=== PATIENT | female | born 1960 | race Caucasian/White ===

== ENCOUNTER 2024-05-01 14:13 | Emergency (ER) | payer OTHER, SELFPAY ==
[2024-05-01 14:17] VITALS: BP 146/70; PULSE 72; RESP 20; TEMP 36.4; O2SAT 97
--- NOTE | 2024-05-01 14:23 | ED.URI ---
HPI - URI/Sore Throat General Chief Complaint: Upper Respiratory Infection Stated Complaint: cough Time Seen by Provider: 05/01/24 14:29 Source: patient, RN notes reviewed and old records reviewed Mode of arrival: ambulatory Limitations: no limitations History of Present Illness HPI Narrative: 64-year-old female presents to the [facility] with a continued cough. Patient reports that she had which she believes was the flu because her was positive approximately 3-4 weeks ago. Has been coughing, increased cough over the last week. No treatment prior to arrival. Has not used her albuterol in several days. Onset (ago): week(s) (3-4) Related Data Home Medications ?Medication ?Instructions ?Recorded ?Confirmed ?Last Taken ?Type albuterol sulfate 90 mcg/actuation 1 puff inhalation Q4H PRN 12/02/23 12/02/23 Unknown History aerosol inhaler biotin 5,000 mcg sublingual tablet 5,000 mcg sublingual DAILY 12/02/23 12/02/23 Unknown History diazepam 10 mg tablet 10 mg PO ONCE PRN 12/02/23 12/02/23 Unknown History famotidine 20 mg tablet 20 mg PO BID 12/02/23 12/02/23 Unknown History Allergies Allergy/AdvReac Type Severity Reaction Status Date / Time escitalopram AdvReac Mild drowsiness Verified 05/01/24 14:26 fluoxetine AdvReac Mild Drowsy Verified 05/01/24 14:26 bupropion AdvReac Intermediate drowsiness Uncoded 05/01/24 14:26 buspirone AdvReac Mild Drowsy Uncoded 05/01/24 14:26 sertraline AdvReac Mild Drowsy Uncoded 05/01/24 14:26 Review of Systems Review of Systems: All systems reviewed & are unremarkable except as noted in HPI and below Constitutional: Constitutional: Reports no additional constitutional complaints ENT: Reports system reviewed and no additional complaints, except as documented Cardiovascular: Cardiovascular: Reports no additional cardiovascular complaints, Denies chest pain and Denies dyspnea Respiratory: Respiratory: Reports as per HPI, Denies chest congestion, Reports cough and Denies dyspnea Musculoskeletal: Musculoskeletal: Reports no additional musculoskeletal complaints Integumentary/Breasts: Skin/Breast: Reports system reviewed and no additional complaints, except as docu [facility] Past Medical History Medical History Hypothyroidism Hyperlipidemia History of underactive thyroid Acid reflux Anxiety Asthma Allergies Family History Family History Father Bladder cancer Diabetes mellitus Depression Anxiety Mother Lung cancer Depression Anxiety Sibling Skin cancer Son Asthma Grandparent Hypertension Diabetes mellitus Grandparent No problems noted. Social History Social History Smoking status: Never smoker Second hand tobacco smoke exposure: No Alcohol intake: current Drinks per week: 1 Substance use: current Other substance usage details: Recreational drugs Do You Feel Safe in your Home?: Yes Lack of Transportation: No Lack of Food: Never True Current Housing: I Have Housing Concerned About Future Housing: No Difficulty Paying Gas/Electric Bills: No Difficulty Paying for Meds: No Currently Unemployed: No Difficulty w/ Childcare or Family Care: No Living arrangements: with family Occupation/Education: retired Gender identity (if verbalized by the patient): Female Sexual Orientation (if Verbalized by the Patient): Straight or Heterosexual Spiritual care concerns: No Comments At the time of my signature, I reviewed and agree with the nursing past medical, surgical, social, and family history. There is no relevant family history pertinent to the patient complaint. Exam Const: General: cooperative, healthy appearing, comfortable, no acute distress, well developed, alert and well nourished Nutritional Appearance: well nourished Orientation/consciousness: patient oriented x3 Limitations: no limitations HENMT: Head: normal to inspection Ears: hearing grossly normal bilaterally, external ears normal, EAC's normal, mastoids normal and no periauricular adenopathy Face/Nose/Sinus: Normal external nose present Mouth: Yes Normal oral and palatal mucosa present, Yes lip normal, Yes tongue normal and Yes moist mucous membranes Throat: uvula midline, postnasal drainage and no uvular edema Eyes: General: appearance normal, both eyes and all related structures Alignment and Position: alignment normal Neck: Neck: normal visual inspection, full ROM, no lymphadenopathy and no meningeal signs Chest: Chest palpation & inspection: normal inspection of the chest Resp: Effort & Inspection: normal respiratory effort and able to speak in complete sentences Auscultation: clear to auscultation bilaterally, no crackles, no rales, no rhonchi and no wheezes Cardio: Rate: regular rate Skin: General skin exam: normal color and no rashes or lesions noted Neuro: General: patient oriented x3, gait normal, moves all extremities and no meningeal signs Cognition (Neuro): normal cognition Speech: normal speech Gait exam (Neuro): Normal gait present Extrem: General: normal to inspection, full ROM, capillary refill normal and normal gait Psych: Appearance: grossly normal and well kempt Mental Status: mental status grossly normal Speech and movement: Normal speech and movement present and Clear speech present Affect: normal affect Attitude: cooperative Course Course Level of Care: Express Care Visit Vital Signs Vital signs: Vital Signs Temperature 97.5 F L 05/01/24 14:17 Pulse Rate 72 05/01/24 14:17 Respiratory Rate 20 05/01/24 14:17 Blood Pressure 146/70 H 05/01/24 14:17 Pulse Oximetry 97 05/01/24 14:17 Oxygen Delivery Room Air 05/01/24 14:17 Temperature 97.5 F L 05/01/24 14:17 Pulse Rate 72 05/01/24 14:17 Respiratory Rate 20 05/01/24 14:17 Blood Pressure 146/70 H 05/01/24 14:17 Pulse Oximetry 97 05/01/24 14:17 Oxygen Delivery Room Air 05/01/24 14:17 Reviewed MDM - URI/Sore Throat MDM Narrative Medical decision making narrative: Patient sitting in exam room. Nontoxic, vitals stable. Patient presents with 3 weeks of cough post probable influenza. Discussed with patient that this could be a postviral cough and can last for several weeks if not several months. X-ray done, negative for pneumonia. Will cover with doxycycline, explained to patient that if there is an underlying bacterial infection that this should take care of it however some of these post viral coughs are lasting a very long time. Additional instructions as well as suggestions for [id number] products given. Patient appropriate for outpatient treatment and follow-up Discharge instructions reviewed with patient, as well as provided in writing per nursing staff. The instructions also include specific and strict return/GO TO THE ER as well as f/u information. All questions have been answered, and the patient deny any further questions with discharge and discharge plan. Some parts of this dictation were generated by voice recognition software and may contain typographical and/or grammatical inaccuracies. Differential Diagnosis Differential diagnosis: Likely upper respiratory infection, sinusitis, viral infection, bronchitis and other ( pneumonia) Imaging Data Radiologist's impression: EXAMINATION: XR chest 2V DATE: 05/01/2024 14:45 INDICATION: Cough. TECHNIQUE: Frontal and lateral views of the chest were obtained. COMPARISON: None. FINDINGS: There is no pneumonia, pleural effusion, or pneumothorax. The heart size is normal. IMPRESSION: 1. No acute cardiopulmonary disease. Critical Care Time Critical Care Time Critical Care Time: No Discharge Plan Discharge Clinical Impression: Bronchitis Patient Disposition: Home, Self-Care Condition: Stable Instructions: Antibiotic Form, Acute Bronchitis (ED) Additional Instructions: after any flu-like illness were COVID the cough can last for several months. It is important to continue to treat your symptoms. Taking good deep breaths, 10 times an hour can help keep your lungs inflated and decrease the chances of pneumonia. Today your x-ray did not show signs of pneumonia using your albuterol inhaler can also help with the cough. today your blood pressure was 146/70. Please follow-up with primary care provider within 2 weeks for re-evaluation It is very important to treat your symptoms. Drink plenty of water, Gatorade, Pedialyte, ice pops or Jell-O. -Alternate Tylenol and Motrin per package directions for fever or pain. You can alternate every 4 hours -Antihistamine medication such as Zyrtec/Claritin/Kristy during the day can help improve symptoms. -doing daily nasal irrigations can help relieve pressure your sinuses. Things like a Neti pot -Use Flonase twice a day for 5 days then daily to help reduce the inflammation and dry up your sinuses. -You can also use Mucinex. Be sure to drink plenty of water with this medication at least 8 ounces with every dose and it is important to drink 8 to 10 glasses of water per day. Water is a natural decongestant -Eat and drink things that are easy to swallow, like tea or soup, or popsicles. -Oral rinses such as: Salt water gargles and/or may use topical anesthetic (eg. Chloraseptic spray) or lozenges to relieve dryness or throat pain). -Frequent hand washing or hand yard specialist is one of the best ways to prevent spread of infection. -Using a vaporizer or humidifier at night will also help thin secretions and help with coughing up phlegm. -Follow up with primary care provider in 7-10 days if condition is not improving - For new or worsening symptoms go directly to the nearest ER Patient Language: Lithuanian Prescriptions: New doxycycline monohydrate 100 mg tablet 100 mg PO BID Qty: 14 0RF No Action diazepam 10 mg tablet 10 mg PO ONCE PRN famotidine 20 mg tablet 20 mg PO BID biotin 5,000 mcg tablet, sublingual 5,000 mcg sublingual DAILY albuterol sulfate 90 mcg/actuation HFA aerosol inhaler 1 puff inhalation Q4H PRN levothyroxine 50 mcg tablet 50 mcg PO DAILY Qty: 90 2RF rosuvastatin 5 mg tablet 5 mg PO DAILY Qty: 30 6RF hydroxyzine HCl 25 mg tablet 25 mg PO BID PRN (Reason: itching) Qty: 60 0RF Follow-up/Referrals: Kallie Castelan MD [Primary Care Provider] - 2 Weeks ([facility] care follow up. blood pressure check. ) Stand Alone Forms: Work/School Release IP Time of Disposition: 14:53
== END 2024-05-01 14:55 | disposition home or self-care (01) ==
PROVIDERS: Emergency Provider Nurse Practitioner; PCP Family Medicine
DX: J40 Bronchitis, not specified as acute or chronic (principal); E03.9 Hypothyroidism, unspecified; E78.5 Hyperlipidemia, unspecified; K21.9 Gastro-esophageal reflux disease without esophagitis; J45.909 Unspecified asthma, uncomplicated
CPT/HCPCS: 71046; 99213; G0463